=== PATIENT | female | born 1995 | race Caucasian/White ===

== ENCOUNTER 2019-02-09 08:01 | Emergency (ER) | payer BC ==
[~2019-02-09] VITALS: Ht 175.3 cm; Wt 114.8 kg
[2019-02-09] MEDS ORDERED: WELLBUTRIN XL300 MG PO (08:09)
[2019-02-09] MEDS ORDERED: METFORMIN HCL500 MG PO (08:09)
[2019-02-09] MEDS ORDERED: BLISOVI FE 1.51 EACH PO (08:10)
[2019-02-09 08:38] LABS: URINE BILIRUBIN NEGATIVE (Negative); URINE BLOOD TRACE (Negative); URINE CLARITY CLEAR; URINE COLOR YELLOW; URINE GLUCOSE-RANDOM* NEGATIVE (Negative); URINE KETONES NEGATIVE (Negative); URINE LEUKOCYTES-REFLEX NEGATIVE (Negative); URINE NITRITE-REFLEX NEGATIVE (Negative); URINE PROTEIN (DIPSTICK) NEGATIVE (Negative); URINE UROBILINOGEN 0.2 E.U./dl (0.2-1.0)
[2019-02-09 08:45] LABS: AMP/METHAMP Negative (Negative); BARBITURATES Negative (Negative); BENZODIAZEPINES Negative (Negative); COCAINE Negative (Negative); METHADONE Negative (Negative); OPIATES Negative (Negative); PCP Negative (Negative)
[2019-02-09 08:49] LABS: ABSOLUTE NEUTROPHILS 5.8 thou/uL (1.4-8.2); BASOPHILS 0.6 % (0.0-2.0); EOSINOPHILS 0.8 % (0.0-3.0); HEMATOCRIT 40.8 % (37.0-47.0); HEMOGLOBIN 13.7 gm/dL (12.0-15.0); LYMPHOCYTES 27.2 % (24.0-44.0); MCH 31.4 pg (26.0-34.0); MCHC 33.6 g/dL (28.0-37.0); MCV 93.5 fL (80.0-100.0); MONOCYTES 7.3 % (1.0-8.0); PLATELET COUNT 283 thou/uL (150-400); POLYS 64.1 % (36.0-66.0); RBC 4.36 mil/uL (4.20-5.00); RDW 12.7 % (10.5-14.5); WBC 9.1 thou/uL (4.0-11.0)
[2019-02-09 08:57] LABS: ANION GAP 9 mmol/L (7-16); BUN 12 mg/dL (7-18); CALCIUM 9.5 mg/dL (8.5-10.1); CHLORIDE 101 mmol/L (98-107); CO2 27 mmol/L (21-32); CREATININE 0.9 mg/dL (0.6-1.0); GLUCOSE 98 mg/dL (74-106); POTASSIUM 3.6 mmol/L (3.5-5.1); SODIUM 137 mmol/L (136-145)
[2019-02-09 09:07] LABS: ALBUMIN 3.9 g/dL (3.4-5.0); SGOT 25 U/L (15-37); SGPT 72 U/L (30-65); TOTAL BILIRUBIN 0.4 mg/dL (<0.1-1.0); TOTAL PROTEIN 7.8 g/dL (6.4-8.2); TROPONIN-I <0.06 ng/mL (<0.06)
[2019-02-09] MEDS ORDERED: VALIUM2 MG PO (09:50)
[2019-02-09] MEDS ORDERED: NAPROSYN500 MG PO (09:50)
[2019-02-09] MEDS ORDERED: ONDANSETRON ODT8 MG PO (09:50)
[2019-02-09 10:15] VITALS: BP 161/85
--- NOTE | 2019-02-09 13:24 | EKG ---
[place] [address] [facility] [place] [address] ELECTROCARDIOGRAM REPORT Name: WARREN BLOUNTSSICA Room #: DEP Kp#: [id number] Admission: 02/09/19 Attend Phys: Discharge: 02/09/19 Date of : [birth year] Report #: [id number] THIS REPORT FOR: //name// [facility] ED Test Date: 2019-02-09 Test Time: 08:27:03 Pat Name: HARDEEP BLOUNT Department: Room: Gender: F Stonemason Helper: SKY : 1995 Requested By: Karel Bettencourt Order Number: [id number] MD: Napoleon Martinez Measurements Intervals [place] Rate: 76 P: 39 NH: 179 QRS: 35 QRSD: 95 T: 24 QT: 398 QTc: 448 Interpretive Statements Sinus rhythm Normal tracing No previous ECG available for comparison Electronically Signed On 02-09-2019 13:24:28 CDT by Napoleon Martinez [email or web address] <ELECTRONICALLY SIGNED> By: Napoleon Martinez MD, [facility] 02/09/19 1324 0827 0827 Napoleon Martinez MD, FAC /EPI
== END 2019-02-09 10:35 | disposition home or self-care (01) ==
LOC: ER 08:01
PROVIDERS: Emergency Medicine
DX: H81.10 Benign paroxysmal vertigo, unspecified ear (principal); F41.9 Anxiety disorder, unspecified; K21.9 Gastro-esophageal reflux disease without esophagitis; R42 Dizziness and giddiness; R51 Headache; G47.10 Hypersomnia, unspecified; E28.2 Polycystic ovarian syndrome; R00.2 Palpitations; Z79.899 Other long term (current) drug therapy